=== PATIENT | female | born 1985 | race Two or more races ===

== ENCOUNTER 2018-10-16 08:10 | Inpatient (IN) | payer BC ==
[2018-10-16] MEDS ORDERED: ELECTROLYTE-148 SOLN 1,000 ML IV SCH ×2 (08:20→10:30)
[2018-10-16 09:28] VITALS: BMI 26.5
[2018-10-16] MEDS ORDERED: FENTANYL/BUPIVACAINE/NS/PF - PCEA - 50 ML DISP.SYRIN EP ONE ×3 (09:36→20:02)
[2018-10-16 10:26] LABS: BASO % 0.7 % (0-2.0); EOS % 0.3 % (0-4.5); HEMOGLOBIN 12.2 GM/dL (10.7-15.3); LYMPH % 17.4 % (8-40); MCH 29.3 pg (25.7-33.7); MCHC 33.7 g/dl (32.0-36.0); MEAN CELL VOLUME 86.9 fl (80-96); MEAN PLT VOLUME 9.8 fl (7.5-11.1); NEUT % 69.6 % (42.8-82.8); PLATELET COUNT 183 K/MM3 (134-434); RBC 4.14 M/mm3 (3.60-5.2); RDW 13.9 % (11.6-15.6); WHITE BLOOD COUNT 7.6 K/mm3 (4.0-10.0)
[2018-10-16 10:33] LABS: INR 0.96 (0.83-1.09); PROTHROMBIN TIME (PATIENT) 11.3 SEC (9.7-13.0)
[2018-10-16 10:33] LABS: BLOOD UREA NITROGEN 13.1 mg/dL (7-18); CALCIUM 8.2 mg/dL (8.5-10.1); CREATININE 0.8 mg/dL (0.55-1.3); POTASSIUM 3.8 mmol/L (3.5-5.1)
--- NOTE | 2018-10-16 10:35 | HP ---
Past Medical History - Primary Care Physician PCP:: Brandin Melgoza - Admission Chief Complaint: 32yo P0 with at EGA 40w2d admitted with spontaneous labor. History of Present Illness: complicated by: post term History Source: Patient, Medical Record Limitations to Obtaining History: No Limitations - Past Medical History CONTRACT AGENT: No: Alzheimer's, CVA, Dementia, Migraine, Multiple Sclerosis, Peripheral Neuropathy, Parkinson's, Seizure, Syncope, TIA, Vertigo, Other Cardiovascular: No: AFIB, Aneurysm, Aortic Insufficiency, Aortic Stenosis, CAD, CHF, Deep Vein Thrombosis, HTN, Hyperlipdemia, OR, Mitral Insufficiency, Mitral Stenosis, Murmur, Pulmonary Hypertension, Other Pulmonary: No: Asthma, Bronchitis, Cancer, COPD, O2 Dependent, Pneumonia, Previously Intubated, Pulmonary Embolus, Pulmonary Fibrosis, Sleep Apnea, Other Gastrointestinal: No: Ascites, Cancer, Constipation, Crohn's Disease, Diverticulitis, Diverticulosis, Esophageal Varices, Gastritis, GERD, GI Bleed, Hemorrhoids, Hiatal Hernia, Inflamatory Bowel Disease, Irritable Bowel Disease, Pancreatitis, Peptic Ulcer Disease, Ulcerative Colitis, Other Hepatobiliary: No: Cirrhosis, Cholelithiasis, Cholecystitis, Choledocholithiasis , Hepatitis A, Hepatitis B, Hepatitis C, Other Renal/: No: Renal Failure, Renal Inusuff, BPH, Cancer, Hematuria, Hemodialysis , Neurogenic Bladder, Renal Calculi, UTI, Other Reproductive: No: Ectopic , Endometriosis, Fibroids, PID, Polycystic Ovary Syndrome, Postmenopausal, Other ...: 2 ...Para: 0 ...Induced : 1 ...LMP: 01/16/18 ... Weeks Gestation by Dates: 40.2 ...EDC by Dates: 10/23/18 ...EDC by Sono: 10/14/18 Heme/Onc: No: Anemia, B12 Deficiency, Bleeding Disorder, Cancer, Current Chemotherapy, Current Radiation Therapy, Hemochromatosis, Hypercoaguable State, Myeloproliferative Synd, Sickle Cell Disease, Sickle Cell Trait, Thrombocytopenia, Other Infectious Disease: No: AIDS, C-Diff, Herpes Zoster, HIV, MRSA, STD's, Tuberculosis, VREF, Other Psych: No: Addictions, Anxiety, Bipolar, Depression, Panic, Psychosis, Schizophrenia, Other Musculoskeletal: No: Bursitis, Chronic low back pain, Hemiparesis, Hemiplegia, Osteoarthritis, Paraplegia, Other Rheumatology: No: Fibromyalgia, Gout, Lupus, Rheumatoid Arthritis, Sarcoidosis, Vasculitis, Other ENT: No: Allergic Rhinitis, Sinusitis, Other Endocrine: No: Kouts's Disease, Latonia's Disease, Diabetes Insipidus, Diabetes Mellitus, Hyperparathyroidism, Hyperthyroidism, Hypothyroidism, Osteopenia, SIADH, Other Dermatology: No: Basal Cell, Cellulitis, Eczema, Melanoma, Psoriasis, Squamous Cell, Other - Past Surgical History Hx Myomectomy: No Hx Transabdominal Cerclage: No Additional Surgical History: Gambian butt lift - Smoking History Smoking history: Never smoked Have you smoked in the past 12 months: No - Alcohol/Substance Use Hx Alcohol Use: No History of Substance Use: reports: None - Social History Usual Living Arrangement: Yes: With Spouse ADL: Independent History of Recent Travel: No Home Medications - Allergies Allergies/Adverse Reactions: Allergies Allergy/AdvReac Type Severity Reaction Status Date / Time No Known Allergies Allergy Verified 10/16/18 09:08 - Home Medications Home Medications: Ambulatory Orders Vitamins (Sjr) - 1 tab PO DAILY 10/16/18 Family Disease History - Family Disease History Family Disease History: Other: Mother (HTN, hyperlipidemia) Review of Systems - Review of Systems Constitutional: reports: No Symptoms Eyes: reports: No Symptoms HENT: reports: No Symptoms Neck: reports: No Symptoms Cardiovascular: reports: No Symptoms Respiratory: reports: No Symptoms Gastrointestinal: reports: No Symptoms Genitourinary: reports: No Symptoms Breasts: reports: No Symptoms Reported Musculoskeletal: reports: No Symptoms Integumentary: reports: No Symptoms Neurological: reports: No Symptoms Endocrine: reports: No Symptoms Hematology/Lymphatic: reports: No Symptoms Psychiatric: reports: No Symptoms Pain Intensity: 8 Physical Exam - Maternity Constitutional: Yes: Well Nourished, No Distress, Calm Eyes: Yes: WNL, Conjunctiva Clear HENT: Yes: WNL, Atraumatic, Normocephalic Neck: Yes: WNL, Supple, Trachea Midline Cardiovascular: Yes: WNL, Regular Rate and Rhythm Lungs: Clear to auscultation, Normal air movement Breast(s): Yes: WNL - Abdominal Exam/OB Fundal Height: 40 Number of Fetuses: Single Presentation: Vertex Contractions: Yes Regularity: Regular Intensity: Mod/Strong Monitor Mode: External Heart Rate (range): 120 Heart Rate Location: Midline Category: I Accelerations: None Decelerations: None - Vaginal Exam/OB Vaginal Bleediing: No Speculum Exam: No Dilatation (cm): 5 Effacement (%): 90 Amniotic Membrane Status: Intact Presentation: Vertex/Position Station: 0 - Physical Exam Musculoskeletal: Yes: WNL Extremities: Yes: WNL Edema: No Integumentary: Yes: WNL Deep Tendon Reflex Grade: Normal +2 ...Motor Strength: WNL Psychiatric: Yes: WNL, Alert, Oriented - Labs Lab Results: CBC, BMP 10/16/18 09:36 Hemorrhage Risk Assessment - Risk Factors Medium Risk Factors: Yes: None High Risk Factors: Yes: None Risk Score: 1 Risk Level: Medium Risk Imaging - Results Ultrasound: Report Reviewed Assessment/Plan 32yo P0 with at EGA 40w2d admitted with spontaneous labor. Fetus with Category I tracing. Labour in early active phase. Plan to monitor labor progress. Pt requested epidural. Anesthesia called. Anticipate .
[2018-10-16 10:36] LABS: ACTIVATED PTT 30.3 SECONDS (25.2-36.5)
[2018-10-16] MEDS ORDERED: FENTANYL/BUPIVACAINE/NS/PF - PCEA - 50 ML DISP.SYRIN EP SCH (10:55)
[2018-10-16] MEDS ORDERED: OXYTOCIN 30 UNITS in 0.9% NS 30 UNIT/500 ML INFUS.BAG IVPB SCH (11:00)
--- NOTE | 2018-10-16 19:15 | PN ---
Ante-Partal Exam - Subjective Subjective: Patient comfortable s/p epidural Vital Signs: Vital Signs Temperature 98.7 F 10/16/18 18:00 Pulse Rate 84 10/16/18 18:45 Respiratory Rate 20 10/16/18 18:45 Blood Pressure 115/73 10/16/18 18:45 O2 Sat by Pulse Oximetry (%) 100 10/16/18 18:45 Bleeding: No Headache: No Visual changes: No Right upper quadrant pain: No - Contractions Contractions: Yes Regularity: Regular - Exam during Labor Heart Rate: 130 Variability: Moderate Category: I Monitor Accelerations: Present Monitor Decelerations: None Exam: Vaginal Dilatation (cm): 9 Effacement (%): 100 Amniotic Membrane Status: Intact Presentation: Vertex Station: 0 - Intrapartum Hemorrhage Risk Medium Risk Factors: None High Risk Factors: None Risk Score: 0 Risk Level: Low Risk - Assessment/Plan Assessment/Plan: 32 yo active labor 1. Good cervical change 2. GBS neg 3. Category I FHT 4. Pain well controlled with epidural 5. Will proceed with expectant management
[2018-10-16] MEDS ORDERED: OXYTOCIN 20 UNITS in 0.9% NS 20 UNIT/1,000 ML INFUS.BAG IV ONE (21:06)
[2018-10-16] MEDS ORDERED: OXYTOCIN 30 UNITS in 0.9% NS 30 UNIT/500 ML INFUS.BAG IVPB ONE (22:33)
[2018-10-17] MEDS ORDERED: LIDOCAINE HCL 1% PRESERVATIVE FREE - 30ML VIAL ONE (00:40)
[2018-10-17] MEDS ORDERED: ACETAMINOPHEN 325 MG TABLET (FP) PO PRN (01:02)
[2018-10-17] MEDS ORDERED: IBUPROFEN 600 MG TABLET (FP) PO PRN (01:02)
[2018-10-17] MEDS ORDERED: BENZOCAINE 28 GM HEMORRHOIDAL OINTMENT TP PRN (01:02)
[2018-10-17] MEDS ORDERED: BISACODYL 10 MG SUPP.RECT RC PRN (01:02)
[2018-10-17] MEDS ORDERED: METHYLERGONOVINE MALEATE 0.2 MG/1 ML AMP IM PRN (01:02)
[2018-10-17] MEDS ORDERED: BENZOCAINE 20% 57 GM BOTTLE TP PRN (01:02)
[2018-10-17] MEDS ORDERED: WITCH HAZEL 50% (TUCKS) 40 PAD/JAR PAD TP PRN (01:02)
--- NOTE | 2018-10-17 01:08 | PN ---
Delivery - Delivery Vaginal Delivery: No Problems Type of Anesthesia: Epidural Episiotomy/Laceration: 1st degree EBL (cc): 300 Delivery, Single - Stages of Labor Date 1st Stage Initiatied: 10/16/18 Time 1st Stage Initiated: 05:30 Date 2nd Stage Initiated: 10/16/18 Time 2nd Stage Initiated: 22:10 Date of Delivery: 10/17/18 Time of Delivery: 00:37 Date Placenta Delivered: 10/17/18 Time Placenta Delivered: 00:50 Placenta: Yes: Spontaneous - Condition of Gender: Male Position: Left, OA Total Hours ROM (Hrs/Mins): 4 hours 52 minutes - 1 Minute Total Score: 9 5 Minutes Total Score: 9 - Feeding Plan Initial Plan: Elected not to breastfeed exclusively throughout hospitalization Remarks - Remarks Remarks: Patient progressed to fully dilated and at 0037 via delivered a viable male infant in SHAHANA position, APGARs 9,9. Weight and length unknown at this time. Head delivered spontaneously followed by shoulders and body without difficulty. with spontaneous cry and placed on mother's abdomen. Nose and mouth was bulb suctioned. Cord was clamped and cut. Perineum and vagina examined, a first degree laceration was noted and repaired in the usual fashion. Placenta was delivered spontaneously and intact. 20 units of pitocin in 1 L IVF was given. All counts correct x 2. Mother and infant stable in LDR. EBL 300cc.
[2018-10-17] MEDS ORDERED: OXYTOCIN 20 UNITS in 0.9% NS 20 UNIT/1,000 ML INFUS.BAG IV SCH (01:15)
[2018-10-17] MEDS: FERROUS SO4 325 MG TABLET (FP) PO SCH ×3 (08:57→17:46)
[2018-10-17] MEDS: PRENATAL VITAMINS W/ FOLIC ACID TABLET (FP) PO SCH (10:14)
[2018-10-18 07:52] LABS: BASO % 0.3 % (0-2.0); EOS % 1.1 % (0-4.5); HEMATOCRIT 30.3 % (32.4-45.2); LYMPH % 22.5 % (8-40); MCH 29.3 pg (25.7-33.7); MCHC 33.1 g/dl (32.0-36.0); MEAN CELL VOLUME 88.7 fl (80-96); MEAN PLT VOLUME 9.4 fl (7.5-11.1); MONO % 12.2 % (3.8-10.2); NEUT % 63.9 % (42.8-82.8); PLATELET COUNT 152 K/MM3 (134-434); RBC 3.42 M/mm3 (3.60-5.2); RDW 14.5 % (11.6-15.6); WHITE BLOOD COUNT 16.4 K/mm3 (4.0-10.0)
[2018-10-18] MEDS: FERROUS SO4 325 MG TABLET (FP) PO SCH ×3 (08:36→17:14)
--- NOTE | 2018-10-18 09:07 | PN ---
Post Progress Note - Subjective Subjective: Patient without acute complaints. Reports tolerating oral intake without nausea or vomiting. Ambulating without dizziness. Denies fevers or chills. Pain well controlled with oral pain medication. without difficulty. Passing flatus. Post Day: 1 Type of Delivery: Vital Signs: Vital Signs Temperature 97.8 F 10/17/18 20:38 Pulse Rate 65 10/17/18 20:38 Respiratory Rate 20 10/17/18 20:38 Blood Pressure 133/87 10/17/18 20:38 O2 Sat by Pulse Oximetry (%) 100 10/17/18 01:35 Breast Exam: Yes: Soft Uterus: Yes: Fundus Firm, Fundus below umbilicus Abdomen/GI: Yes: Abdomen soft, Passing flatus, Tolerating PO. No: Abdominal Distention, Tender Lochia: Yes: Rubra Lochia, amount: Small Extremities: Yes: Calves non-tender, Edema (trace) Activity: Ambulating - Labs Labs: CBC WBC 16.4 K/mm3 (4.0-10.0) H 10/18/18 06:00 RBC 3.42 M/mm3 (3.60-5.2) L 10/18/18 06:00 Hgb 10.0 GM/dL (10.7-15.3) L 10/18/18 06:00 Hct 30.3 % (32.4-45.2) L D 10/18/18 06:00 MCV 88.7 fl (80-96) 10/18/18 06:00 MCH 29.3 pg (25.7-33.7) 10/18/18 06:00 MCHC 33.1 g/dl (32.0-36.0) 10/18/18 06:00 RDW 14.5 % (11.6-15.6) 10/18/18 06:00 Plt Count 152 K/MM3 (134-434) 10/18/18 06:00 MPV 9.4 fl (7.5-11.1) 10/18/18 06:00 Absolute Neuts (auto) 10.5 K/mm3 (1.5-8.0) H 10/18/18 06:00 Neutrophils % 63.9 % (42.8-82.8) 10/18/18 06:00 Lymphocytes % 22.5 % (8-40) D 10/18/18 06:00 Monocytes % 12.2 % (3.8-10.2) H 10/18/18 06:00 Eosinophils % 1.1 % (0-4.5) D 10/18/18 06:00 Basophils % 0.3 % (0-2.0) 10/18/18 06:00 Nucleated RBC % 0 % (0-0) 10/18/18 06:00 Assessment/Plan 32 yo PPD # 1 s/p , afebrile, vital signs stable, doing well 1. Continue routine care. 2. AM CBC with mild asymptomatic anemia 3. Rh positive status, no rhogam indicated. 4. Encourage ambulation 5. Continue oral pain medication 6. Anticipate discharge home day #2 7. Patient states desires circumcision for . Discussed risks including infection, bleeding, damage to tip of penis, and unsatisfactory result, resulting in surgical repair or repeat circumcision. Patient expressed understanding and consents to procedure. Reviewed infants chart, cleared for circumcision and normal genitalia per turner machine operator, Dr. Davidson
[2018-10-18] MEDS: PRENATAL VITAMINS W/ FOLIC ACID TABLET (FP) PO SCH (09:48)
[2018-10-18] MEDS ORDERED: SENNOSIDES/DOCUSATE COMBO (SENNA PLUS) TABLET (UD) PO PRN (22:00)
[2018-10-19] MEDS: FERROUS SO4 325 MG TABLET (FP) PO SCH (08:59)
[2018-10-19] MEDS: PRENATAL VITAMINS W/ FOLIC ACID TABLET (FP) PO SCH (09:00)
[2018-10-19 09:58] VITALS: BP 111/69; PULSE 70; TEMP 97.6
--- NOTE | 2018-10-19 09:58 | PN ---
Post Progress Note - Subjective Subjective: Patient without acute complaints. Reports tolerating oral intake without nausea or vomiting. Ambulating without dizziness. Denies fevers or chills. Pain well controlled with oral pain medication. without difficulty. Passing flatus. Post Day: 2 Type of Delivery: Vital Signs: Vital Signs Temperature 98.0 F 10/18/18 21:28 Pulse Rate 75 10/18/18 21:28 Respiratory Rate 20 10/18/18 21:28 Blood Pressure 116/74 10/18/18 21:28 O2 Sat by Pulse Oximetry (%) 100 10/17/18 01:35 - Labs Labs: CBC WBC 16.4 K/mm3 (4.0-10.0) H 10/18/18 06:00 RBC 3.42 M/mm3 (3.60-5.2) L 10/18/18 06:00 Hgb 10.0 GM/dL (10.7-15.3) L 10/18/18 06:00 Hct 30.3 % (32.4-45.2) L D 10/18/18 06:00 MCV 88.7 fl (80-96) 10/18/18 06:00 MCH 29.3 pg (25.7-33.7) 10/18/18 06:00 MCHC 33.1 g/dl (32.0-36.0) 10/18/18 06:00 RDW 14.5 % (11.6-15.6) 10/18/18 06:00 Plt Count 152 K/MM3 (134-434) 10/18/18 06:00 MPV 9.4 fl (7.5-11.1) 10/18/18 06:00 Absolute Neuts (auto) 10.5 K/mm3 (1.5-8.0) H 10/18/18 06:00 Neutrophils % 63.9 % (42.8-82.8) 10/18/18 06:00 Lymphocytes % 22.5 % (8-40) D 10/18/18 06:00 Monocytes % 12.2 % (3.8-10.2) H 10/18/18 06:00 Eosinophils % 1.1 % (0-4.5) D 10/18/18 06:00 Basophils % 0.3 % (0-2.0) 10/18/18 06:00 Nucleated RBC % 0 % (0-0) 10/18/18 06:00 Assessment/Plan 32 yo PPD # 1 s/p , afebrile, vital signs stable, doing well 1. Patient stable for discharge home today. 2. Patient encouraged to contact MD for: - Severe pain not controlled by oral pain medication - Fevers or chills - Nausea or vomiting, intolerance of oral intake 3. Patient to follow up in office in 4-6 weeks for visit
--- NOTE | 2018-10-19 09:59 | DS ---
Physical Exam-PROCESS CONTROLS TECHNICIAN Vital Signs: Vital Signs Temperature 98.0 F 10/18/18 21:28 Pulse Rate 75 10/18/18 21:28 Respiratory Rate 20 10/18/18 21:28 Blood Pressure 116/74 10/18/18 21:28 O2 Sat by Pulse Oximetry (%) 100 10/17/18 01:35 Labs: CBC, BMP 10/18/18 06:00 10/16/18 09:36 Delivery - Delivery Vaginal Delivery: No Problems Type of Anesthesia: Epidural Episiotomy/Laceration: 1st degree EBL (cc): 300 Delivery, Single - Stages of Labor Date 1st Stage Initiatied: 10/16/18 Time 1st Stage Initiated: 05:30 Date 2nd Stage Initiated: 10/16/18 Time 2nd Stage Initiated: 22:10 Date of Delivery: 10/17/18 Time of Delivery: 00:37 Time Placenta Delivered: 00:50 Placenta: Yes: Spontaneous - Condition of Center Medical Director/Lead Furnace Operator Present: No Infant Gender: Male Weight: 6 lb 4 oz Position: Left, OA Total Hours ROM (Hrs/Mins): 4 hours 39 minutes - 1 Minute Total Score: 9 5 Minutes Total Score: 9 - Feeding Plan Initial Plan: Elected not to breastfeed exclusively throughout hospitalization Discharge Summary Reason For Visit: LABOR ADMISSION Current Active Problems Anemia (Acute) Vaginal delivery (Acute) Procedures: Principal: Vaginal delivery Hospital Course: Patient admitted in active labor She progressed to deliver via a viable male . PPD # 1 patient ambulated, voiding, passing gas, tolerating oral intake and with adequate pain control. She fulfilled all criteria for discharge PPD #2 Condition: Good - Instructions Diet, Activity, Other Instructions: Follow up in 4-6 weeks for visit Physical activity Resume your normal everyday activity as tolerated no heavy lifting or exercise until seen by your surgeon. You may walk unlimited nataliya of and climb stairs. You may resume driving the car when you feel safe and comfortable behind the wheel. No sexual activity as instructed. Diet There are no dietary restrictions. Eat healthy, high-fiber foods. Drink 6 to 8 glasses of liquid each day. This will assist in keeping your bowels are regular. Pain management You may take Tylenol or acetaminophen or Ibuprofen (for example, Motrin, Advil etc.) for pain. Call MD for any of the following: Severe pain not relieved by medication Fever of 101 or higher Excessive bleeding or drainage on dressing Inability to urinate Referrals: Damari Rojas MD [Staff Physician] - Ashlee Romero MD [Staff Physician] - Disposition: HOME - Home Medications Comprehensive Discharge Medication List: Ambulatory Orders Vitamins (Sjr) - 1 tab PO DAILY 10/16/18
== END 2018-10-19 10:55 | disposition home or self-care (01) | DRG 807 ==
LOC: JLDR 08:10 → J3W 10-17 03:15
PROVIDERS: ADMIT Obstetrics & Gynecology; ATTEND Obstetrics & Gynecology
PROC: 10E0XZZ Delivery of Products of Conception, External Approach (ICD-10-PCS; principal; 2018-10-17)
PROC: 0HQ9XZZ Repair Perineum Skin, External Approach (ICD-10-PCS; 2018-10-17)
DX: O48.0 Post-term pregnancy (principal); Z37.0 Single live birth; O70.0 First degree perineal laceration during delivery; Z3A.40 40 weeks gestation of pregnancy
CPT/HCPCS: 36415; 36600; 59409; 80048; 82803; 85025; 85610; 85730; 86593; 86850; 86900; 86901; 87389

== ENCOUNTER 2020-01-22 05:20 | Inpatient (IN) | payer OTHER ==
[2020-01-22] MEDS ORDERED: ELECTROLYTE-148 SOLN 500 ML IV ONE (05:30)
[2020-01-22] MEDS ORDERED: OXYTOCIN 20 UNITS in 0.9% NS 20 UNIT/1,000 ML INFUS.BAG IV ONE ×2 (05:43→10:10)
[2020-01-22] MEDS ORDERED: LIDOCAINE HCL 1% PRESERVATIVE FREE - 30ML VIAL ONE (05:43)
[2020-01-22 06:09] LABS: EOS % 3.1 % (0-4.5); HEMATOCRIT 35.9 % (32.4-45.2); HEMOGLOBIN 11.6 GM/dL (10.7-15.3); LYMPH % 31.5 % (8-40); MCH 27.4 pg (25.7-33.7); MCHC 32.2 g/dl (32.0-36.0); MEAN CELL VOLUME 85.1 fl (80-96); MEAN PLT VOLUME 8.9 fl (7.5-11.1); MONO % 12.6 % (3.8-10.2); NEUT % 51.8 % (42.8-82.8); PLATELET COUNT 225 K/MM3 (134-434); RBC 4.22 M/mm3 (3.60-5.2); RDW 17.8 % (11.6-15.6); WHITE BLOOD COUNT 6.9 K/mm3 (4.0-10.0)
[2020-01-22 06:12] VITALS: BMI 24.3
[2020-01-22 06:15] LABS: INR 0.94 (0.83-1.09); PROTHROMBIN TIME (PATIENT) 11.6 SEC (9.7-13.0)
[2020-01-22] MEDS ORDERED: PCA PUMP NR ONE (06:21)
[2020-01-22] MEDS ORDERED: FENTANYL/BUPIVACAINE/NS/PF - PCEA - 50 ML DISP.SYRIN EP ONE (06:22)
[2020-01-22] MEDS ORDERED: BUPIVACAINE HCL/PF 0.25% (2.5MG/ML) 10 ML VIAL ONE (06:26)
[2020-01-22 06:30] LABS: POTASSIUM 3.7 mmol/L (3.5-5.1)
[2020-01-22 06:31] LABS: CALCIUM 8.8 mg/dL (8.5-10.1)
[2020-01-22 06:32] LABS: BLOOD UREA NITROGEN 9.4 mg/dL (7-18)
[2020-01-22 06:35] LABS: CREATININE 0.5 mg/dL (0.55-1.3)
[2020-01-22] MEDS ORDERED: ELECTROLYTE-148 SOLN 1,000 ML IV SCH (07:00)
[2020-01-22] MEDS ORDERED: NALOXONE HCL 0.4 MG/ML VIAL IVPUSH PRN (07:29)
[2020-01-22] MEDS ORDERED: FENTANYL/BUPIVACAINE/NS/PF - PCEA - 50 ML DISP.SYRIN EP SCH ×3 (07:30→08:19)
[2020-01-22] MEDS ORDERED: BENZOCAINE 20% 57 GM BOTTLE TP PRN (09:07)
[2020-01-22] MEDS ORDERED: ACETAMINOPHEN 325 MG TABLET (FP) PO PRN (09:07)
[2020-01-22] MEDS ORDERED: BISACODYL 10 MG SUPP.RECT RC PRN (09:07)
[2020-01-22] MEDS ORDERED: WITCH HAZEL 50% (TUCKS) 40 PAD/JAR PAD TP PRN (09:07)
[2020-01-22] MEDS ORDERED: IBUPROFEN 600 MG TABLET (FP) PO PRN (09:07)
[2020-01-22] MEDS ORDERED: METHYLERGONOVINE MALEATE 0.2 MG/1 ML AMP IM PRN (09:07)
[2020-01-22] MEDS ORDERED: BENZOCAINE 28 GM HEMORRHOIDAL OINTMENT TP PRN (09:07)
[2020-01-22] MEDS ORDERED: OXYTOCIN 20 UNITS in 0.9% NS 20 UNIT/1,000 ML INFUS.BAG IV SCH (09:15)
[2020-01-22 10:16] LABS: CORD HCO3 24.1 mmHg (20-29); CORD PCO2 60.9 mmHg (30-78); CORD pH 7.215 (7.14-7.44)
[2020-01-22 10:17] LABS: CORD BASE EXCESS -3.8 mmol/L (0-2); CORD HCO3 22.6 mmHg (20-29); CORD PCO2 45.7 mmHg (30-78); CORD pH 7.312 (7.14-7.44)
[2020-01-22] MEDS: FERROUS SO4 325 MG TABLET (FP) PO SCH ×2 (11:34→22:01)
[2020-01-22] MEDS: PRENATAL VITAMINS W/ FOLIC ACID TABLET (FP) PO SCH (11:35)
[2020-01-23 07:14] LABS: BASO % 0.3 % (0-2.0); EOS % 1.9 % (0-4.5); HEMATOCRIT 34.4 % (32.4-45.2); HEMOGLOBIN 11.1 GM/dL (10.7-15.3); MCHC 32.4 g/dl (32.0-36.0); MEAN CELL VOLUME 86.4 fl (80-96); MEAN PLT VOLUME 8.8 fl (7.5-11.1); NEUT % 65.8 % (42.8-82.8); PLATELET COUNT 218 K/MM3 (134-434); RBC 3.98 M/mm3 (3.60-5.2); RDW 18.9 % (11.6-15.6); WHITE BLOOD COUNT 12.2 K/mm3 (4.0-10.0)
[2020-01-23] MEDS: FERROUS SO4 325 MG TABLET (FP) PO SCH (10:47)
[2020-01-23] MEDS: PRENATAL VITAMINS W/ FOLIC ACID TABLET (FP) PO SCH (10:48)
[2020-01-23 12:15] VITALS: BP 112/74; PULSE 82; TEMP 98.2
[2020-01-23] MEDS ORDERED: SENNOSIDES/DOCUSATE COMBO (SENNA PLUS) TABLET (UD) PO PRN (22:00)
== END 2020-01-23 14:00 | disposition home or self-care (01) | DRG 560 ==
LOC: JDEL 05:20 → JLDR 05:30 → J3W 11:00
PROVIDERS: ADMIT Obstetrics & Gynecology; ATTEND Obstetrics & Gynecology
PROC: 10E0XZZ Delivery of Products of Conception, External Approach (ICD-10-PCS; principal; 2020-01-22)
DX: O80 Encounter for full-term uncomplicated delivery (principal); Z3A.39 39 weeks gestation of pregnancy; Z37.0 Single live birth
CPT/HCPCS: 36415; 36600; 59409; 80048; 82803; 85025; 85610; 85730; 86780; 86850; 86900; 86901; C9803; U0003